=== PATIENT | female | born 1965 | race African-American/Black ===

== ENCOUNTER 2018-07-08 08:35 | Inpatient (IN) | payer OTHER ==
[2018-07-08 09:45] VITALS: BMI 32.1
--- NOTE | 2018-07-08 10:47 | HP ---
CIWA Score - CIWA Score Nausea/Vomitin Muscle Tremors: 3 Anxiety: 3 Agitation: 3 Paroxysmal Sweats: 1-Minimal Palms Moist Orientation: 0-Oriented Tacttile Disturbances: 1-Very Mild Itch/Numbness Auditory Disturbances: 1-Very Mild Visual Disturbances: 1-Very Mild Sensitivity Headache: 2-Mild CIWA-Ar Total Score: 17 Admission ROS BHS - HPI Chief Complaint: i need help to stop drinking alcohol,cocaine and marijuana Allergies/Adverse Reactions: Allergies Allergy/AdvReac Type Severity Reaction Status Date / Time egg Allergy Intermediate Hives Verified 07/08/18 09:52 No Known Drug Allergies Allergy Verified 07/08/18 09:52 History of Present Illness: this 52 years old female with alcohol,cocaine and marijuana dependence,seeking detox,withdrawal symptom,last detox 2013 syncope alcohol related hypertension non compliance nicotine dependence longest period of sobriety 5 years Exam Limitations: No Limitations - Ebola screening Have you traveled outside of the country in the last 21 days: No (N) Have you had contact with anyone from an Ebola affected area: No Have you been sick,other than usual withdrawal symptoms: No Do you have a fever: No - Review of Systems Constitutional: Loss of Appetite, Malaise, Night Sweats, Changes in sleep, Weakness EENT: reports: Nose Congestion Respiratory: reports: No Symptoms reported Cardiac: reports: No Symptoms Reported GI: reports: Diarrhea, Nausea, Poor Appetite : reports: No Symptoms Reported Musculoskeletal: reports: Back Pain, Muscle Pain Neuro: reports: Headache, Tremors Endocrine: reports: No Symptoms Reported Hematology: reports: No Symptoms Reported Psychiatric: reports: Judgement Intact, Mood/Affect Appropiate, Orientated x3 Patient History - Patient Medical History Hx Anemia: No Hx Asthma: No Hx Chronic Obstructive Pulmonary Disease (COPD): No Hx Cancer: No Hx Cardiac Disorders: No Hx Congestive Heart Failure: No Hx Hypertension: Yes (on meds. non compliance) Hx Hypercholesterolemia: No Hx Pacemaker: No HX Cerebrovascular Accident: No Hx Seizures: No Hx Dementia: No Hx Diabetes: No Hx Gastrointestinal Disorders: No Hx Liver Disease: No Hx Genitourinary Disorders: No Hx Sexually Transmitted Disorders: No Hx Renal Disease (ESRD): No Hx Thyroid Disease: No Hx Human Immunodeficiency Virus (HIV): No (12/16 last tested) Hx Hepatitis C: No Hx Depression: No Hx Suicide Attempt: No Hx Bipolar Disorder: No Hx Schizophrenia: No Other Medical History: no suicidal,no homicidal - Patient Surgical History Past Surgical History: Yes Hx Abdominal Surgery: Yes (February 2003 partial hysterectomy) Hx Cholecystectomy: Yes (in 1996 lap) Hx Hysterectomy: Yes (partial for fibroid) Other Surgical History: Misael james sx in 03/17 Anesthesia Reaction: No - PPD History Previous Implant?: No Documented Results: Positive w/o proof Date: 08/03/96 Results: TREATED PPD to be Administered?: No - Reproductive History Last Menstrual Period: 02/14/03 Patient : No - Smoking Cessation Smoking history: Current every day smoker Have you smoked in the past 12 months: Yes Aproximately how many cigarettes per day: 5 Cigars Per Day: 0 Hx Chewing Tobacco Use: No Initiated information on smoking cessation: Yes 'Breaking Loose' booklet given: 07/08/18 - Substance & Tx. History Hx Alcohol Use: Yes Hx Substance Use: Yes Substance Use Type: Alcohol, Cocaine, Marijuana Hx Substance Use Treatment: Yes ([facility] 2013) - Substances Abused Alcohol Route: Oral Frequency: Daily Amount used: 12 16OZ CANS OF BEER, 3-4 AIRLINE BOTTLES OF BACARDI Age of first use: 12 Date of Last Use: 07/08/18 Marijuana/Hashish Route: Smoking Frequency: 3-6 times per week Amount used: 5 - $10 DOLLAR BAGS PER DAY Age of first use: 12 Date of Last Use: 07/07/18 Crack Route: Smoking Frequency: 3-6 times per week Amount used: 13-15 BAGS PER DAY Age of first use: 12 Date of Last Use: 07/07/18 Family Disease History - Family Disease History Family Disease History: Other: Mother (chr. alcoholism ) Admission Physical Exam BHS - Vital Signs Vital Signs: Vital Signs - 24 hr 07/08/18 09:38 Temperature 98.6 F Pulse Rate 101 H Respiratory 20 Rate Blood Pressure 204/98 H - Physical General Appearance: Yes: Moderate Distress, Obese, Tremorous, Irritable, Sweating, Anxious HEENTM: Yes: Normal ENT Inspection, Normocephalic, THOMAS, Pharynx Normal Respiratory: Yes: Within Normal Limits, Lungs Clear, Normal Breath Sounds Neck: Yes: No masses,lesions,Nodules, Supple, Trachea in good position Breast: Yes: Breast Exam Deferred Cardiology: Yes: Tachycardia Abdominal: Yes: Within Normal Limits, Normal Bowel Sounds, Non Tender, Soft Genitourinary: Yes: Within Normal Limits Back: Yes: Muscle Spasm, Other (sciatica) Extremities: Yes: Tremors Neurological: Yes: Within Normal Limits, sales enablement manager II-XII NML intact, Fully Oriented, Alert, Motor Strength 5/5 Integumentary: Yes: Dry Lymphatic: Yes: Within Normal Limits - Diagnostic (1) Alcohol dependence with uncomplicated withdrawal Current Visit: Yes Status: Acute (2) Cocaine dependence Current Visit: No Status: Acute (3) Cannabis dependence Current Visit: Yes Status: Acute (4) Essential hypertension Current Visit: Yes Status: Acute (5) Left sided sciatica Current Visit: No Status: Acute (6) S/P laparoscopic cholecystectomy Current Visit: No Status: Acute (7) S/P partial hysterectomy Current Visit: No Status: Acute (8) Syncope Current Visit: No Status: Acute (9) Obese Current Visit: Yes Status: Acute (10) Positive PPD Current Visit: Yes Status: Acute (11) Hypercholesterolemia Current Visit: Yes Status: Acute Cleared for Admission [facility] - Detox or Rehab [facility] Level of Care: Medically Managed Detox Regimen/Protocol: Librium [facility] Breath Alcohol Content Breath Alcohol Content: 0 Urine Pregancy Test - Result Urine Test Results: Negative- NO Line Present Urine Drug Screen - Results Drug Screen Negative: No Urine Drug Screen Results: THC-Marijuana, REID-Cocaine
[2018-07-08] MEDS ORDERED: MAG HYDROX/AL HYDROX/SIMETH 30 ML UNIT-DOSE CUP PO PRN (11:02)
[2018-07-08] MEDS ORDERED: MAGNESIUM HYDROX 2400MG/30ML ORAL SUSPENSION 30 ML CUP PO PRN (11:02)
[2018-07-08] MEDS ORDERED: P-EPHED 60MG/TRIPROLIDI 2.5MG TABLET PO PRN (11:02)
[2018-07-08] MEDS ORDERED: guaiFENesin/D-METHORPHAN HB 10 ML UNIT-DOSE CUPS PO PRN (11:02)
[2018-07-08] MEDS ORDERED: LOPERAMIDE HCL 2 MG CAPSULE PO PRN (11:02)
[2018-07-08] MEDS ORDERED: hydrOXYzine PAMOATE 50 MG CAPSULE (FP) PO PRN (11:02)
[2018-07-08] MEDS ORDERED: MAGNESIUM CITRATE 300 ML BOTTLE PO PRN (11:02)
[2018-07-08] MEDS ORDERED: IBUPROFEN 400 MG TABLET (FP) PO PRN (11:02)
[2018-07-08] MEDS ORDERED: MENTHOL/PHENOL 1 EACH UD MM PRN (11:02)
[2018-07-08] MEDS: LISINOPRIL 20 MG TABLET (FP) PO SCH (12:01)
[2018-07-08] MEDS: chlordiazePOXIDE HCL 25 MG CAPSULE PO PRN (12:02)
[2018-07-08] MEDS: ACETAMINOPHEN 325 MG TABLET (FP) PO PRN (12:35)
[2018-07-08] MEDS ORDERED: NAPROXEN 500 MG TABLET (FP) PO ONE (14:00)
[2018-07-08] MEDS: chlordiazePOXIDE HCL 25 MG CAPSULE PO SCH ×2 (17:15→22:17)
[2018-07-08 17:21] LABS: URINE APPEARANCE CLEAR; URINE BILIRUBIN NEGATIVE (<2.0 mg/dL); URINE COLOR LTYELLOW; URINE GLUCOSE (UA) NEGATIVE (NEGATIVE); URINE KETONE NEGATIVE (NEGATIVE); URINE LEUK ESTERASE NEGATIVE (NEGATIVE); URINE NITRITE NEGATIVE (NEGATIVE); URINE PROTEIN NEGATIVE (NEGATIVE); URINE UROBILINOGEN NEGATIVE mg/dL (0.2-1.0)
[2018-07-08] MEDS ORDERED: MELATONIN 5 MG TABLETS PO PRN (22:00)
[2018-07-08] MEDS: THIAMINE HCL 100 MG TABLET (FP) PO SCH (22:17)
[2018-07-08] MEDS: NAPROXEN 500 MG TABLET (FP) PO SCH (22:17)
[2018-07-08] MEDS: ATORVASTATIN CA 10 MG TABLET (FP) PO SCH (22:17)
--- NOTE | 2018-07-08 22:17 | EKG ---
Test Reason : Blood Pressure : / mmHG Vent. Rate : 095 BPM Atrial Rate : 095 BPM P-R Int : 140 ms QRS Dur : 090 ms QT Int : 368 ms P-R-T Axes : 061 017 083 degrees QTc Int : 462 ms NORMAL SINUS RHYTHM POSSIBLE LEFT ATRIAL ENLARGEMENT LEFT VENTRICULAR HYPERTROPHY CANNOT RULE OUT SEPTAL INFARCT , AGE UNDETERMINED ABNORMAL ECG NO PREVIOUS ECGS AVAILABLE Confirmed by JEFFERSON HUI MD ([id number]) on 07/08/2018 10:17:18 PM Referred By: Confirmed By:JEFFERSON HUI MD
[2018-07-09] MEDS: chlordiazePOXIDE HCL 25 MG CAPSULE PO SCH ×4 (05:30→23:22)
[2018-07-09] MEDS: ASPIRIN COATED 81 MG TABLET.EC PO SCH (10:44)
[2018-07-09] MEDS: NAPROXEN 500 MG TABLET (FP) PO SCH ×2 (10:44→22:56)
[2018-07-09] MEDS: LISINOPRIL 20 MG TABLET (FP) PO SCH (10:44)
[2018-07-09] MEDS: PRENATAL VITAMINS W/ FOLIC ACID TABLET (FP) PO SCH (10:45)
[2018-07-09] MEDS: chlordiazePOXIDE HCL 25 MG CAPSULE PO PRN (10:45)
[2018-07-09 11:01] LABS: HEMATOCRIT 44.8 % (32.4-45.2); HEMOGLOBIN 14.8 GM/dL (10.7-15.3); MEAN CELL VOLUME 93.9 fl (80-96); MEAN PLT VOLUME 8.2 fl (7.5-11.1); PLATELET COUNT 273 K/MM3 (134-434); RBC 4.77 M/mm3 (3.60-5.2); RDW 13.4 % (11.6-15.6); WHITE BLOOD COUNT 9.2 K/mm3 (4.0-10.0)
[2018-07-09 11:30] LABS: ALBUMIN 3.7 g/dl (3.4-5.0); ALK PHOS 123 U/L (45-117); ANION GAP 7 MMOL/L (8-16); BILIRUBIN,TOTAL 0.3 mg/dL (0.2-1); BLOOD UREA NITROGEN 17 mg/dL (7-18); CALCIUM 9.1 mg/dL (8.5-10.1); CHLORIDE 109 mmol/L (98-107); CHOLESTEROL 179 mg/dL (50-200); CO2 26 mmol/L (21-32); CREATININE 0.7 mg/dL (0.55-1.3); GLUCOSE,RANDOM 78 mg/dL (74-106); HDL CHOLESTEROL 59 mg/dL (40-60); POTASSIUM 4.4 mmol/L (3.5-5.1); SGOT/AST 23 U/L (15-37); SGPT/ALT 37 U/L (13-61); SODIUM 142 mmol/L (136-145); TOT PROT 7.2 g/dl (6.4-8.2); TRIGLYCERIDES 136 mg/dL (0-150)
--- NOTE | 2018-07-09 13:59 | PN ---
S CIWA - CIWA Score Nausea/Vomitin-No Nausea/No Vomiting Muscle Tremors: None Anxiety: 3 Agitation: 3 Paroxysmal Sweats: 2 Orientation: 0-Oriented Tacttile Disturbances: 0-None Auditory Disturbances: 0-None Visual Disturbances: 0-None Headache: 0-None Present CIWA-Ar Total Score: 8 BHS Progress Note (SOAP) Subjective: PATIENT PACING IN HALLWAY CONSOLING ANOTHER PATIENT. ANXIOUS/IRRITABLE AT TIMES. Objective: 07/09/18 13:57 Vital Signs Temperature 96.6 F L 07/09/18 09:31 Pulse Rate 74 07/09/18 09:31 Respiratory Rate 18 07/09/18 09:31 Blood Pressure 136/68 07/09/18 09:31 O2 Sat by Pulse Oximetry (%) Laboratory Tests 07/08/18 07/09/18 07/09/18 14:30 06:00 06:00 WBC 9.2 RBC 4.77 Hgb 14.8 Hct 44.8 MCV 93.9 MCH 31.0 MCHC 33.0 RDW 13.4 Plt Count 273 MPV 8.2 Sodium 142 Potassium 4.4 Chloride 109 H Carbon Dioxide 26 Anion Gap 7 L BUN 17 Creatinine 0.7 Creat Clearance w eGFR > 60 Random Glucose 78 Calcium 9.1 Total Bilirubin 0.3 AST 23 ALT 37 Alkaline Phosphatase 123 H Total Protein 7.2 Albumin 3.7 Triglycerides 136 Cholesterol 179 Total LDL Cholesterol 97 HDL Cholesterol 59 Urine Color Ltyellow Urine Appearance Clear Urine pH 5.0 Ur Specific [place] 1.018 Urine Protein Negative Urine Glucose (UA) Negative Urine Ketones Negative Urine Blood Negative Urine Nitrite Negative Urine Bilirubin Negative Urine Urobilinogen Negative Ur Leukocyte Esterase Negative RPR Titer 07/09/18 06:00 WBC RBC Hgb Hct MCV MCH MCHC RDW Plt Count MPV Sodium Potassium Chloride Carbon Dioxide Anion Gap BUN Creatinine Creat Clearance w eGFR Random Glucose Calcium Total Bilirubin AST ALT Alkaline Phosphatase Total Protein Albumin Triglycerides Cholesterol Total LDL Cholesterol HDL Cholesterol Urine Color Urine Appearance Urine pH Ur Specific [place] Urine Protein Urine Glucose (UA) Urine Ketones Urine Blood Urine Nitrite Urine Bilirubin Urine Urobilinogen Ur Leukocyte Esterase RPR Titer Nonreactive ALERT AND ORIENTED SKIN MOIST IN NAD EXT FULL ROM, AMB AD MICHAEL Assessment: 07/09/18 13:58 WITHDRAWAL SYNDROME Plan: DETOX CONTINUED ENCOURAGE ORAL FLUIDS CONTINUE TO MONITOR
[2018-07-09] MEDS: ACETAMINOPHEN 325 MG TABLET (FP) PO PRN (20:36)
[2018-07-09] MEDS: ATORVASTATIN CA 10 MG TABLET (FP) PO SCH (22:57)
[2018-07-09] MEDS: THIAMINE HCL 100 MG TABLET (FP) PO SCH (23:23)
[2018-07-10] MEDS ORDERED: NAPROXEN 500 MG TABLET (FP) PO ONE (01:31)
[2018-07-10] MEDS: chlordiazePOXIDE HCL 25 MG CAPSULE PO SCH ×2 (06:33→10:36)
[2018-07-10] MEDS ORDERED: cloNIDine HCL 0.1 MG TABLET PO SCH (10:00)
[2018-07-10] MEDS: LISINOPRIL 20 MG TABLET (FP) PO SCH (10:36)
[2018-07-10] MEDS: ASPIRIN COATED 81 MG TABLET.EC PO SCH (10:36)
[2018-07-10] MEDS: NAPROXEN 500 MG TABLET (FP) PO SCH ×2 (10:36→23:19)
[2018-07-10] MEDS: PRENATAL VITAMINS W/ FOLIC ACID TABLET (FP) PO SCH (10:36)
[2018-07-10] MEDS: cloNIDine HCL 0.1 MG TABLET PO SCH ×2 (11:44→23:19)
--- NOTE | 2018-07-10 13:58 | PN ---
S CIWA - CIWA Score Nausea/Vomitin-No Nausea/No Vomiting Muscle Tremors: None Anxiety: 4-Mod. Anxious/Guarded Agitation: 3 Paroxysmal Sweats: No Perspiration Orientation: 0-Oriented Tacttile Disturbances: 0-None Auditory Disturbances: 0-None Visual Disturbances: 0-None Headache: 2-Mild CIWA-Ar Total Score: 9 BHS Progress Note (SOAP) Subjective: PATIENT IRRITABLE AND C/O HEADACHE. Objective: 07/10/18 13:56 Vital Signs Temperature 97.3 F L 07/10/18 10:43 Pulse Rate 85 07/10/18 10:43 Respiratory Rate 18 07/10/18 10:43 Blood Pressure 152/85 07/10/18 10:43 O2 Sat by Pulse Oximetry (%) Laboratory Tests 07/08/18 07/09/18 07/09/18 14:30 06:00 06:00 WBC 9.2 RBC 4.77 Hgb 14.8 Hct 44.8 MCV 93.9 MCH 31.0 MCHC 33.0 RDW 13.4 Plt Count 273 MPV 8.2 Sodium 142 Potassium 4.4 Chloride 109 H Carbon Dioxide 26 Anion Gap 7 L BUN 17 Creatinine 0.7 Creat Clearance w eGFR > 60 Random Glucose 78 Calcium 9.1 Total Bilirubin 0.3 AST 23 ALT 37 Alkaline Phosphatase 123 H Total Protein 7.2 Albumin 3.7 Triglycerides 136 Cholesterol 179 Total LDL Cholesterol 97 HDL Cholesterol 59 Urine Color Ltyellow Urine Appearance Clear Urine pH 5.0 Ur Specific [place] 1.018 Urine Protein Negative Urine Glucose (UA) Negative Urine Ketones Negative Urine Blood Negative Urine Nitrite Negative Urine Bilirubin Negative Urine Urobilinogen Negative Ur Leukocyte Esterase Negative RPR Titer 07/09/18 06:00 WBC RBC Hgb Hct MCV MCH MCHC RDW Plt Count MPV Sodium Potassium Chloride Carbon Dioxide Anion Gap BUN Creatinine Creat Clearance w eGFR Random Glucose Calcium Total Bilirubin AST ALT Alkaline Phosphatase Total Protein Albumin Triglycerides Cholesterol Total LDL Cholesterol HDL Cholesterol Urine Color Urine Appearance Urine pH Ur Specific [place] Urine Protein Urine Glucose (UA) Urine Ketones Urine Blood Urine Nitrite Urine Bilirubin Urine Urobilinogen Ur Leukocyte Esterase RPR Titer Nonreactive SKIN WARM AND DRY AMB AD MICHAEL IRRITABLE AND ANXIOUS ALERT AND ORIENTED Assessment: 07/10/18 13:57 WITHDRAWAL SYNDROME Plan: CONTINUE DETOX ORAL FLUIDS ENCOURAGED CONTINUE TO MONITOR CLINICALLY
[2018-07-10] MEDS: chlordiazePOXIDE 5 MG CAPSULE PO SCH ×2 (17:37→23:20)
[2018-07-10] MEDS: ACETAMINOPHEN 325 MG TABLET (FP) PO PRN (20:02)
[2018-07-10] MEDS: ATORVASTATIN CA 10 MG TABLET (FP) PO SCH (23:19)
[2018-07-10] MEDS: THIAMINE HCL 100 MG TABLET (FP) PO SCH (23:20)
[2018-07-11] MEDS: ACETAMINOPHEN 325 MG TABLET (FP) PO PRN ×2 (05:29→19:06)
[2018-07-11] MEDS: chlordiazePOXIDE 5 MG CAPSULE PO SCH ×2 (05:29→10:50)
[2018-07-11] MEDS: LISINOPRIL 20 MG TABLET (FP) PO SCH (09:50)
[2018-07-11] MEDS: ASPIRIN COATED 81 MG TABLET.EC PO SCH (09:50)
[2018-07-11] MEDS: PRENATAL VITAMINS W/ FOLIC ACID TABLET (FP) PO SCH (09:51)
[2018-07-11] MEDS: NAPROXEN 500 MG TABLET (FP) PO SCH ×2 (09:51→22:07)
[2018-07-11] MEDS: cloNIDine HCL 0.1 MG TABLET PO SCH ×2 (09:51→22:07)
--- NOTE | 2018-07-11 16:05 | PN ---
BHS Progress Note (SOAP) Subjective: feeling better no tremor less sweat social with peers sleep better at night Objective: 07/11/18 16:06 Vital Signs Temperature 98.1 F 07/11/18 16:03 Pulse Rate 81 07/11/18 16:03 Respiratory Rate 18 07/11/18 16:03 Blood Pressure 147/88 07/11/18 16:03 O2 Sat by Pulse Oximetry (%) Laboratory Last Values WBC 9.2 K/mm3 (4.0-10.0) 07/09/18 06:00 RBC 4.77 M/mm3 (3.60-5.2) 07/09/18 06:00 Hgb 14.8 GM/dL (10.7-15.3) 07/09/18 06:00 Hct 44.8 % (32.4-45.2) 07/09/18 06:00 MCV 93.9 fl (80-96) 07/09/18 06:00 MCH 31.0 pg (25.7-33.7) 07/09/18 06:00 MCHC 33.0 g/dl (32.0-36.0) 07/09/18 06:00 RDW 13.4 % (11.6-15.6) 07/09/18 06:00 Plt Count 273 K/MM3 (134-434) 07/09/18 06:00 MPV 8.2 fl (7.5-11.1) 07/09/18 06:00 Sodium 142 mmol/L (136-145) 07/09/18 06:00 Potassium 4.4 mmol/L (3.5-5.1) 07/09/18 06:00 Chloride 109 mmol/L (98-107) H 07/09/18 06:00 Carbon Dioxide 26 mmol/L (21-32) 07/09/18 06:00 Anion Gap 7 MMOL/L (8-16) L 07/09/18 06:00 BUN 17 mg/dL (7-18) 07/09/18 06:00 Creatinine 0.7 mg/dL (0.55-1.3) 07/09/18 06:00 Creat Clearance w eGFR > 60 (>60) 07/09/18 06:00 Random Glucose 78 mg/dL (74-106) 07/09/18 06:00 Calcium 9.1 mg/dL (8.5-10.1) 07/09/18 06:00 Total Bilirubin 0.3 mg/dL (0.2-1) 07/09/18 06:00 AST 23 U/L (15-37) 07/09/18 06:00 ALT 37 U/L (13-61) 07/09/18 06:00 Alkaline Phosphatase 123 U/L (45-117) H 07/09/18 06:00 Total Protein 7.2 g/dl (6.4-8.2) 07/09/18 06:00 Albumin 3.7 g/dl (3.4-5.0) 07/09/18 06:00 Triglycerides 136 mg/dL (0-150) 07/09/18 06:00 Cholesterol 179 mg/dL (50-200) 07/09/18 06:00 Total LDL Cholesterol 97 mg/dL (5-100) 07/09/18 06:00 HDL Cholesterol 59 mg/dL (40-60) 07/09/18 06:00 Urine Color Ltyellow 07/08/18 14:30 Urine Appearance Clear 07/08/18 14:30 Urine pH 5.0 (5.0-8.0) 07/08/18 14:30 Ur Specific [place] 1.018 (1.004-1.035) 07/08/18 14:30 Urine Protein Negative (NEGATIVE) 07/08/18 14:30 Urine Glucose (UA) Negative (NEGATIVE) 07/08/18 14:30 Urine Ketones Negative (NEGATIVE) 07/08/18 14:30 Urine Blood Negative (NEGATIVE) 07/08/18 14:30 Urine Nitrite Negative (NEGATIVE) 07/08/18 14:30 Urine Bilirubin Negative (<2.0 mg/dL) 07/08/18 14:30 Urine Urobilinogen Negative mg/dL (0.2-1.0) 07/08/18 14:30 Ur Leukocyte Esterase Negative (NEGATIVE) 07/08/18 14:30 RPR Titer Nonreactive (NONREACTIVE) 07/09/18 06:00 lab noted Assessment: 07/11/18 16:08 mild withdrawal sx Plan: medically supervised detox
[2018-07-11] MEDS: chlordiazePOXIDE HCL 10 MG CAPSULE PO SCH ×2 (18:23→22:06)
[2018-07-11] MEDS: THIAMINE HCL 100 MG TABLET (FP) PO SCH (22:07)
[2018-07-11] MEDS: ATORVASTATIN CA 10 MG TABLET (FP) PO SCH (22:07)
[2018-07-12] MEDS: chlordiazePOXIDE HCL 10 MG CAPSULE PO SCH (07:22)
[2018-07-12 07:32] VITALS: BP 129/74; PULSE 67; TEMP 97.3
--- NOTE | 2018-07-12 09:24 | DS ---
[facility] Detox Discharge Summary Admission Date: 07/08/18 Discharge Date: 07/12/18 - History Present History: Alcohol Dependence Additional Comments: 52 years old female admitted on 07/08/18 for alcohol wtihdrwal sx completed detox regimen tolerated well denies alohol withdrawal sx alert oriented x 3 no acute distress aftercare [facility] - Physical Exam Results Vital Signs: Vital Signs Temperature 97.3 F L 07/12/18 07:32 Pulse Rate 67 07/12/18 07:32 Respiratory Rate 18 07/12/18 07:32 Blood Pressure 129/74 07/12/18 07:32 O2 Sat by Pulse Oximetry (%) Pertinent Admission Physical Exam Findings: alcohol withdrawal sx Vital Signs Temperature 97.3 F L 07/12/18 07:32 Pulse Rate 67 07/12/18 07:32 Respiratory Rate 18 07/12/18 07:32 Blood Pressure 129/74 07/12/18 07:32 O2 Sat by Pulse Oximetry (%) Laboratory Last Values WBC 9.2 K/mm3 (4.0-10.0) 07/09/18 06:00 RBC 4.77 M/mm3 (3.60-5.2) 07/09/18 06:00 Hgb 14.8 GM/dL (10.7-15.3) 07/09/18 06:00 Hct 44.8 % (32.4-45.2) 07/09/18 06:00 MCV 93.9 fl (80-96) 07/09/18 06:00 MCH 31.0 pg (25.7-33.7) 07/09/18 06:00 MCHC 33.0 g/dl (32.0-36.0) 07/09/18 06:00 RDW 13.4 % (11.6-15.6) 07/09/18 06:00 Plt Count 273 K/MM3 (134-434) 07/09/18 06:00 MPV 8.2 fl (7.5-11.1) 07/09/18 06:00 Sodium 142 mmol/L (136-145) 07/09/18 06:00 Potassium 4.4 mmol/L (3.5-5.1) 07/09/18 06:00 Chloride 109 mmol/L (98-107) H 07/09/18 06:00 Carbon Dioxide 26 mmol/L (21-32) 07/09/18 06:00 Anion Gap 7 MMOL/L (8-16) L 07/09/18 06:00 BUN 17 mg/dL (7-18) 07/09/18 06:00 Creatinine 0.7 mg/dL (0.55-1.3) 07/09/18 06:00 Creat Clearance w eGFR > 60 (>60) 07/09/18 06:00 Random Glucose 78 mg/dL (74-106) 07/09/18 06:00 Calcium 9.1 mg/dL (8.5-10.1) 07/09/18 06:00 Total Bilirubin 0.3 mg/dL (0.2-1) 07/09/18 06:00 AST 23 U/L (15-37) 07/09/18 06:00 ALT 37 U/L (13-61) 07/09/18 06:00 Alkaline Phosphatase 123 U/L (45-117) H 07/09/18 06:00 Total Protein 7.2 g/dl (6.4-8.2) 07/09/18 06:00 Albumin 3.7 g/dl (3.4-5.0) 07/09/18 06:00 Triglycerides 136 mg/dL (0-150) 07/09/18 06:00 Cholesterol 179 mg/dL (50-200) 07/09/18 06:00 Total LDL Cholesterol 97 mg/dL (5-100) 07/09/18 06:00 HDL Cholesterol 59 mg/dL (40-60) 07/09/18 06:00 Urine Color Ltyellow 07/08/18 14:30 Urine Appearance Clear 07/08/18 14:30 Urine pH 5.0 (5.0-8.0) 07/08/18 14:30 Ur Specific [place] 1.018 (1.004-1.035) 07/08/18 14:30 Urine Protein Negative (NEGATIVE) 07/08/18 14:30 Urine Glucose (UA) Negative (NEGATIVE) 07/08/18 14:30 Urine Ketones Negative (NEGATIVE) 07/08/18 14:30 Urine Blood Negative (NEGATIVE) 07/08/18 14:30 Urine Nitrite Negative (NEGATIVE) 07/08/18 14:30 Urine Bilirubin Negative (<2.0 mg/dL) 07/08/18 14:30 Urine Urobilinogen Negative mg/dL (0.2-1.0) 07/08/18 14:30 Ur Leukocyte Esterase Negative (NEGATIVE) 07/08/18 14:30 RPR Titer Nonreactive (NONREACTIVE) 07/09/18 06:00 lab noted - Treatment Hospital Course: Detox Protocol Followed, Detoxed Safely, Responded well, Discharged Condition Good, Rehab Referral Accepted Patient has Accepted a Rehab Referral to: [facility] - Medication Discharge Medications: Ambulatory Orders Naproxen [Naprosyn -] 500 mg PO BID 02/08/14 Aspirin [Aspirin EC] 81 mg PO DAILY 07/08/18 Lisinopril 20 mg PO DAILY #30 tablet 07/11/18 Simvastatin 20 mg PO HS #30 tablet 07/11/18 - Diagnosis (1) Alcohol dependence with uncomplicated withdrawal Status: Acute (2) Essential hypertension Status: Chronic (3) Hypercholesterolemia Status: Chronic (4) Positive PPD Status: Resolved - AMA Did Patient Leave Against Medical Advice: No
== END 2018-07-12 08:05 | disposition home or self-care (01) | DRG 774 ==
LOC: YASAS 08:35 → Y6N 10:53
PROC: HZ2ZZZZ Detoxification Services for Substance Abuse Treatment (ICD-10-PCS; principal; 2018-07-08)
DX: F10.230 Alcohol dependence with withdrawal, uncomplicated (principal); F14.20 Cocaine dependence, uncomplicated; F12.20 Cannabis dependence, uncomplicated; I10 Essential (primary) hypertension; E78.00 Pure hypercholesterolemia, unspecified; M54.32 Sciatica, left side; R55 Syncope and collapse; E66.9 Obesity, unspecified; Z68.32 Body mass index [BMI] 32.0-32.9, adult; Z90.49 Acquired absence of other specified parts of digestive tract; Z90.711 Acquired absence of uterus with remaining cervical stump
CPT/HCPCS: 36415; 71046-TC-FY; 80053; 80061; 81003; 83721; 85027; 86593; 93005; 93010; J0735

== ENCOUNTER 2022-04-08 10:17 | Inpatient (IN) | payer OTHER ==
[2022-04-08 11:13] VITALS: BMI 30.7
[2022-04-08] MEDS ORDERED: MAGNESIUM CITRATE 300 ML BOTTLE PO PRN (11:26)
[2022-04-08] MEDS ORDERED: DICYCLOMINE HCL 10 MG CAPSULE PO PRN (11:26)
[2022-04-08] MEDS ORDERED: BENZOCAINE/MENTHOL (CHLORASEPTIC ) LOZENGE MM PRN (11:26)
[2022-04-08] MEDS ORDERED: IBUPROFEN 400 MG TABLET (FP) PO PRN (11:26)
[2022-04-08] MEDS ORDERED: MAG HYDROX/AL HYDROX/SIMETH 30 ML UNIT-DOSE CUP PO PRN (11:26)
[2022-04-08] MEDS ORDERED: chlordiazePOXIDE HCL 25 MG CAPSULE PO PRN (11:26)
[2022-04-08] MEDS ORDERED: LOPERAMIDE HCL 2 MG CAPSULE PO PRN (11:26)
[2022-04-08] MEDS ORDERED: ACETAMINOPHEN 325 MG TABLET (FP) PO PRN ×2 (11:26)
[2022-04-08] MEDS ORDERED: MAGNESIUM HYDROX 2400MG/30ML ORAL SUSPENSION 30 ML CUP PO PRN (11:26)
[2022-04-08] MEDS ORDERED: METHOCARBAMOL 500 MG TABLET PO PRN (11:26)
[2022-04-08] MEDS ORDERED: IBUPROFEN 600 MG TABLET (FP) PO PRN (11:26)
[2022-04-08] MEDS ORDERED: ONDANSETRON *ODT* 4 MG TABLET SL PRN (11:26)
[2022-04-08] MEDS ORDERED: BISMUTH SUBSALICYLATE 262 MG/15 ML BTL PO PRN (11:26)
[2022-04-08] MEDS: chlordiazePOXIDE HCL 25 MG CAPSULE PO SCH ×3 (12:23→22:22)
[2022-04-08] MEDS: PRENATAL VITAMINS W/ FOLIC ACID TABLET (FP) PO SCH (12:25)
[2022-04-08] MEDS: hydrOXYzine PAMOATE 25 MG CAPSULE (FP) PO SCH ×3 (14:33→22:23)
[2022-04-08] MEDS: IBUPROFEN 400 MG TABLET (FP) PO PRN (17:52)
[2022-04-08] MEDS: NICOTINE 10 MG CARTRIDGE (INHALER) IH PRN (17:56)
[2022-04-08] MEDS: MELATONIN 5 MG TABLETS PO SCH (22:22)
[2022-04-08] MEDS: THIAMINE HCL 100 MG TABLET (FP) PO SCH (22:22)
[2022-04-08] MEDS: ATORVASTATIN CA 10 MG TABLET (FP) PO SCH (22:22)
[2022-04-09] MEDS: IBUPROFEN 400 MG TABLET (FP) PO PRN ×3 (06:08→22:14)
[2022-04-09] MEDS: chlordiazePOXIDE HCL 25 MG CAPSULE PO SCH (06:09)
[2022-04-09] MEDS: hydrOXYzine PAMOATE 25 MG CAPSULE (FP) PO SCH (06:11)
[2022-04-09] MEDS: NICOTINE 10 MG CARTRIDGE (INHALER) IH PRN ×2 (06:24→20:17)
[2022-04-09 08:35] LABS: ALBUMIN 3.6 g/dl (3.4-5.0); BLOOD UREA NITROGEN 26.5 mg/dL (7-18)
[2022-04-09 08:38] LABS: CREATININE 0.5 mg/dL (0.55-1.3)
[2022-04-09 08:40] LABS: BILIRUBIN,TOTAL 0.4 mg/dL (0.2-1); TOT PROT 6.7 g/dl (6.4-8.2)
[2022-04-09 08:42] LABS: HEMATOCRIT 41.3 % (32.4-45.2); HEMOGLOBIN 14.1 GM/dL (10.7-15.3); MCH 32.3 pg (25.7-33.7); MCHC 34.2 g/dl (32.0-36.0); MEAN CELL VOLUME 94.4 fl (80-96); MEAN PLT VOLUME 7.6 fl (7.5-11.1); PLATELET COUNT 243 10^3/uL (134-434); RBC 4.37 M/mm3 (3.60-5.2); RDW 14.2 % (11.6-15.6); WHITE BLOOD COUNT 7.6 K/mm3 (4.0-10.0)
[2022-04-09] MEDS ORDERED: LORazepam 1 MG TABLET PO PRN (09:59)
[2022-04-09] MEDS ORDERED: LISINOPRIL 20 MG TABLET PO SCH (10:00)
[2022-04-09] MEDS: PRENATAL VITAMINS W/ FOLIC ACID TABLET (FP) PO SCH (10:06)
[2022-04-09] MEDS: PANTOPRAZOLE 20 MG TABLET PO SCH (10:29)
[2022-04-09] MEDS: amLODIPine BESYLATE 10 MG TABLET (FP) PO SCH (10:29)
[2022-04-09] MEDS: ASPIRIN COATED 81 MG TABLET.EC PO SCH (10:30)
[2022-04-09] MEDS: LORazepam 2 MG TABLET PO SCH ×3 (10:31→22:12)
[2022-04-09] MEDS: valACYclovir HCL 500 MG TABLET (FP) PO SCH (10:33)
[2022-04-09] MEDS: LOSARTAN POTASSIUM 50 MG TABLET PO SCH (17:32)
[2022-04-09] MEDS: THIAMINE HCL 100 MG TABLET (FP) PO SCH (22:12)
[2022-04-09] MEDS: ATORVASTATIN CA 10 MG TABLET (FP) PO SCH (22:12)
[2022-04-09] MEDS: MELATONIN 5 MG TABLETS PO SCH (22:12)
[2022-04-10] MEDS ORDERED: chlordiazePOXIDE HCL 25 MG CAPSULE PO SCH (05:00)
[2022-04-10] MEDS: LORazepam 2 MG TABLET PO SCH ×2 (05:36→10:29)
[2022-04-10] MEDS: NICOTINE 10 MG CARTRIDGE (INHALER) IH PRN (06:17)
[2022-04-10] MEDS: IBUPROFEN 400 MG TABLET (FP) PO PRN ×3 (09:17→22:30)
[2022-04-10] MEDS: LOSARTAN POTASSIUM 50 MG TABLET PO SCH (10:27)
[2022-04-10] MEDS: valACYclovir HCL 500 MG TABLET (FP) PO SCH (10:28)
[2022-04-10] MEDS: amLODIPine BESYLATE 10 MG TABLET (FP) PO SCH (10:28)
[2022-04-10] MEDS: ASPIRIN COATED 81 MG TABLET.EC PO SCH (10:28)
[2022-04-10] MEDS: PRENATAL VITAMINS W/ FOLIC ACID TABLET (FP) PO SCH (10:29)
[2022-04-10] MEDS: PANTOPRAZOLE 20 MG TABLET PO SCH (10:29)
[2022-04-10] MEDS ORDERED: INSULIN (NOVOLOG) ASPART 100 UNITS/ML 10ML VIAL ONE (17:19)
[2022-04-10] MEDS: metFORMIN HCL 500 MG TABLET (FP) PO SCH (17:49)
[2022-04-10] MEDS: INSULIN SLIDING SCALE (NOVOLOG) 1 VIAL SQ SCH (17:58)
[2022-04-10] MEDS: diazePAM 5 MG TABLET PO SCH ×2 (17:58→23:21)
[2022-04-10] MEDS ORDERED: diazePAM 5 MG TABLET PO SCH (22:00)
[2022-04-10] MEDS: THIAMINE HCL 100 MG TABLET (FP) PO SCH (22:27)
[2022-04-10] MEDS: ATORVASTATIN CA 10 MG TABLET (FP) PO SCH (22:27)
[2022-04-10] MEDS: MELATONIN 5 MG TABLETS PO SCH (22:27)
[2022-04-11] MEDS ORDERED: chlordiazePOXIDE HCL 10 MG CAPSULE PO PRN
[2022-04-11] MEDS ORDERED: LORazepam 1 MG TABLET PO SCH (05:00)
[2022-04-11] MEDS ORDERED: chlordiazePOXIDE HCL 10 MG CAPSULE PO SCH (05:00)
[2022-04-11] MEDS: IBUPROFEN 400 MG TABLET (FP) PO PRN ×3 (05:59→21:30)
[2022-04-11] MEDS: metFORMIN HCL 500 MG TABLET (FP) PO SCH ×2 (05:59→17:55)
[2022-04-11] MEDS: diazePAM 5 MG TABLET PO SCH ×3 (06:01→22:29)
[2022-04-11] MEDS: INSULIN SLIDING SCALE (NOVOLOG) 1 VIAL SQ SCH ×2 (07:10→18:34)
[2022-04-11] MEDS: NICOTINE 10 MG CARTRIDGE (INHALER) IH PRN (08:57)
[2022-04-11] MEDS: PRENATAL VITAMINS W/ FOLIC ACID TABLET (FP) PO SCH (10:35)
[2022-04-11] MEDS: ASPIRIN COATED 81 MG TABLET.EC PO SCH (10:35)
[2022-04-11] MEDS: LOSARTAN POTASSIUM 50 MG TABLET PO SCH (10:35)
[2022-04-11] MEDS: amLODIPine BESYLATE 10 MG TABLET (FP) PO SCH (10:35)
[2022-04-11] MEDS: PANTOPRAZOLE 20 MG TABLET PO SCH (10:35)
[2022-04-11] MEDS: valACYclovir HCL 500 MG TABLET (FP) PO SCH (10:35)
[2022-04-11] MEDS: THIAMINE HCL 100 MG TABLET (FP) PO SCH (22:28)
[2022-04-11] MEDS: MELATONIN 5 MG TABLETS PO SCH (22:28)
[2022-04-11] MEDS: ATORVASTATIN CA 10 MG TABLET (FP) PO SCH (22:28)
[2022-04-12] MEDS ORDERED: LORazepam 0.5 MG TABLET PO PRN
[2022-04-12] MEDS ORDERED: LORazepam 0.5 MG TABLET PO SCH (05:00)
[2022-04-12] MEDS ORDERED: chlordiazePOXIDE HCL 10 MG CAPSULE PO SCH (05:00)
[2022-04-12] MEDS: metFORMIN HCL 500 MG TABLET (FP) PO SCH ×2 (06:23→17:20)
[2022-04-12] MEDS: INSULIN SLIDING SCALE (NOVOLOG) 1 VIAL SQ SCH ×2 (06:24→17:20)
[2022-04-12] MEDS: NICOTINE 10 MG CARTRIDGE (INHALER) IH PRN ×3 (06:38→22:02)
[2022-04-12] MEDS: IBUPROFEN 400 MG TABLET (FP) PO PRN ×3 (07:43→22:00)
[2022-04-12] MEDS: PRENATAL VITAMINS W/ FOLIC ACID TABLET (FP) PO SCH (11:23)
[2022-04-12] MEDS: amLODIPine BESYLATE 10 MG TABLET (FP) PO SCH (11:24)
[2022-04-12] MEDS: LOSARTAN POTASSIUM 50 MG TABLET PO SCH (11:24)
[2022-04-12] MEDS: PANTOPRAZOLE 20 MG TABLET PO SCH (11:24)
[2022-04-12] MEDS: valACYclovir HCL 500 MG TABLET (FP) PO SCH (11:24)
[2022-04-12] MEDS: ASPIRIN COATED 81 MG TABLET.EC PO SCH (11:28)
[2022-04-12] MEDS: ATORVASTATIN CA 10 MG TABLET (FP) PO SCH (22:01)
[2022-04-12] MEDS: THIAMINE HCL 100 MG TABLET (FP) PO SCH (22:01)
[2022-04-12] MEDS: MELATONIN 5 MG TABLETS PO SCH (22:01)
[2022-04-13] MEDS ORDERED: LORazepam 0.5 MG TABLET PO ONE (05:00)
[2022-04-13] MEDS ORDERED: chlordiazePOXIDE HCL 10 MG CAPSULE PO ONE (05:00)
[2022-04-13] MEDS ORDERED: diazePAM 5 MG TABLET PO ONE (05:00)
[2022-04-13] MEDS: IBUPROFEN 400 MG TABLET (FP) PO PRN (05:15)
[2022-04-13] MEDS: metFORMIN HCL 500 MG TABLET (FP) PO SCH (07:01)
[2022-04-13] MEDS: INSULIN SLIDING SCALE (NOVOLOG) 1 VIAL SQ SCH (08:15)
[2022-04-13] MEDS: LOSARTAN POTASSIUM 50 MG TABLET PO SCH (09:53)
[2022-04-13] MEDS: PANTOPRAZOLE 20 MG TABLET PO SCH (09:53)
[2022-04-13] MEDS: amLODIPine BESYLATE 10 MG TABLET (FP) PO SCH (09:53)
[2022-04-13] MEDS: PRENATAL VITAMINS W/ FOLIC ACID TABLET (FP) PO SCH (09:53)
[2022-04-13] MEDS: valACYclovir HCL 500 MG TABLET (FP) PO SCH (09:53)
[2022-04-13] MEDS: ASPIRIN COATED 81 MG TABLET.EC PO SCH (09:55)
[2022-04-13 10:06] VITALS: BP 145/89; PULSE 83; TEMP 96.7
== END 2022-04-13 11:00 | disposition home or self-care (01) | DRG 774 ==
LOC: YASAS 10:17 → Y6N 11:47
PROVIDERS: ADMIT Allergy & Immunology; ATTEND Surgery
PROC: HZ2ZZZZ Detoxification Services for Substance Abuse Treatment (ICD-10-PCS; principal; 2022-04-08)
DX: F10.230 Alcohol dependence with withdrawal, uncomplicated (principal); F14.20 Cocaine dependence, uncomplicated; F12.20 Cannabis dependence, uncomplicated; E78.00 Pure hypercholesterolemia, unspecified; I10 Essential (primary) hypertension; E11.9 Type 2 diabetes mellitus without complications; Z79.84 Long term (current) use of oral hypoglycemic drugs; K21.9 Gastro-esophageal reflux disease without esophagitis; M54.32 Sciatica, left side; R76.11 Nonspecific reaction to tuberculin skin test without active tuberculosis; Z20.2 Contact with and (suspected) exposure to infections with a predominantly sexual mode of transmission; E66.9 Obesity, unspecified; Z68.30 Body mass index [BMI] 30.0-30.9, adult; Z28.310 Unvaccinated for COVID-19; Z91.012 Allergy to eggs
CPT/HCPCS: 36415; 71046-TC-FY; 80053; 82962; 84520; 85027; 86593; 86780; 93005; 93010; C9803-CS; U0003; U0005

== ENCOUNTER 2024-01-28 11:33 | Inpatient (IN) | payer OTHER ==
[2024-01-28 12:26] VITALS: BMI 28.5
[2024-01-28] MEDS ORDERED: MAG HYDROX/AL HYDROX/SIMETH 30 ML UNIT-DOSE CUP PO PRN (14:00)
[2024-01-28] MEDS ORDERED: DICYCLOMINE HCL 10 MG CAPSULE PO PRN (14:00)
[2024-01-28] MEDS ORDERED: IBUPROFEN 600 MG TABLET (FP) PO PRN (14:00)
[2024-01-28] MEDS ORDERED: ACETAMINOPHEN 325 MG TABLET (FP) PO PRN (14:00)
[2024-01-28] MEDS ORDERED: LOPERAMIDE HCL 2 MG CAPSULE PO PRN (14:00)
[2024-01-28] MEDS ORDERED: BENZOCAINE/MENTHOL (CHLORASEPTIC ) LOZENGE MM PRN (14:00)
[2024-01-28] MEDS ORDERED: guaiFENesin 600 MG TABLET.ER (FP) PO PRN (14:00)
[2024-01-28] MEDS ORDERED: BISMUTH SUBSALICYLATE 524 MG/30 ML PO PRN (14:00)
[2024-01-28] MEDS ORDERED: NALOXONE HCL (KLOXXADO) 8 MG SPRAY NS PRN (14:00)
[2024-01-28] MEDS ORDERED: NALOXONE HCL 0.4 MG/ML VIAL IM PRN (14:00)
[2024-01-28] MEDS ORDERED: BENZONATATE 200 MG CAPSULE PO PRN (14:00)
[2024-01-28] MEDS ORDERED: POLYETHYLENE GLYCOL (HEALTHYLAX) 3350 17 GM PACKET PO PRN (14:00)
[2024-01-28] MEDS ORDERED: ONDANSETRON *ODT* 4 MG TABLET SL PRN (14:00)
[2024-01-28] MEDS ORDERED: IBUPROFEN 400 MG TABLET (FP) PO PRN (14:00)
[2024-01-28] MEDS: PRENATAL VITAMINS W/ FOLIC ACID TABLET (FP) PO SCH (14:45)
[2024-01-28] MEDS: hydrOXYzine PAMOATE 25 MG CAPSULE (FP) PO PRN (14:45)
[2024-01-28] MEDS ORDERED: hydrOXYzine PAMOATE 25 MG CAPSULE (FP) PO ONE (14:46)
[2024-01-28] MEDS ORDERED: PRENATAL VITAMINS W/ FOLIC ACID TABLET (FP) PO ONE (14:46)
[2024-01-28] MEDS: diazePAM 5 MG TABLET PO SCH ×2 (18:00→18:27)
[2024-01-28] MEDS: ATORVASTATIN CA 40 MG TABLET (FP) PO SCH (22:33)
[2024-01-28] MEDS: THIAMINE 100 MG TABLET PO SCH (22:33)
[2024-01-28] MEDS: MELATONIN 5 MG TABLETS PO SCH (22:33)
[2024-01-29] MEDS: amLODIPine BESYLATE 10 MG TABLET (FP) PO SCH (10:36)
[2024-01-29] MEDS: valACYclovir HCL 500 MG TABLET (FP) PO SCH (10:36)
[2024-01-29] MEDS: LISINOPRIL 10 MG TABLET PO SCH (10:36)
[2024-01-29] MEDS: PANTOPRAZOLE 40 MG TABLET PO SCH (10:36)
[2024-01-29] MEDS: NAPROXEN 500 MG TABLET PO PRN (10:37)
[2024-01-29] MEDS: DOCUSATE SODIUM 100 MG CAPSULE (FP) PO PRN (10:54)
[2024-01-29 11:47] LABS: HEMATOCRIT 41.2 % (32.4-45.2); HEMOGLOBIN 14.1 GM/dL (10.7-15.3); MCH 33.2 pg (25.7-33.7); MCHC 34.3 g/dl (32.0-36.0); MEAN CELL VOLUME 96.9 fl (80-96); PLATELET COUNT 288 10^3/uL (134-434); RBC 4.25 M/mm3 (3.60-5.2); RDW 13.5 % (11.6-15.6); WHITE BLOOD COUNT 7.3 K/mm3 (4.0-10.0)
[2024-01-29 11:49] LABS: POTASSIUM 4.1 mmol/L (3.5-5.1)
[2024-01-29 12:00] LABS: CALCIUM 8.7 mg/dL (8.5-10.1)
[2024-01-29 12:01] LABS: ALBUMIN 3.5 g/dl (3.4-5.0); BLOOD UREA NITROGEN 14.4 mg/dL (7-18)
[2024-01-29 12:04] LABS: CREATININE 0.7 mg/dL (0.55-1.3)
[2024-01-29 12:06] LABS: BILIRUBIN,TOTAL 0.5 mg/dL (0.2-1); TOT PROT 6.4 g/dl (6.4-8.2)
[2024-01-29] MEDS: MAGNESIUM HYDROX 2400MG/30ML ORAL SUSPENSION 30 ML CUP PO PRN (17:40)
[2024-01-29] MEDS: diazePAM 5 MG TABLET PO PRN (22:07)
[2024-01-30] MEDS: diazePAM 5 MG TABLET PO SCH (06:02)
[2024-01-30] MEDS: METHOCARBAMOL 500 MG TABLET PO PRN (22:46)
[2024-01-31] MEDS: diazePAM 5 MG TABLET PO SCH (05:47)
[2024-01-31 20:29] VITALS: RESP 18
[2024-01-31] MEDS: LACTULOSE 20 GM/30 ML UDC (FOR ORAL USE ONLY) PO SCH (21:54)
[2024-02-01] MEDS: diazePAM 5 MG TABLET PO ONE (05:59)
[2024-02-01 09:26] VITALS: BP 146/71; PULSE 85; TEMP 97.1
== END 2024-02-01 09:43 | disposition home or self-care (01) | DRG 774 ==
LOC: YASAS 11:33 → Y6N 14:08
PROVIDERS: ADMIT Allergy & Immunology; ATTEND Surgery
PROC: HZ2ZZZZ Detoxification Services for Substance Abuse Treatment (ICD-10-PCS; principal; 2024-01-28)
DX: F10.230 Alcohol dependence with withdrawal, uncomplicated (principal); F14.20 Cocaine dependence, uncomplicated; F16.10 Hallucinogen abuse, uncomplicated; F12.20 Cannabis dependence, uncomplicated; F17.210 Nicotine dependence, cigarettes, uncomplicated; E78.00 Pure hypercholesterolemia, unspecified; K21.9 Gastro-esophageal reflux disease without esophagitis; I10 Essential (primary) hypertension; Z86.19 Personal history of other infectious and parasitic diseases; Z86.11 Personal history of tuberculosis; Z99.89 Dependence on other enabling machines and devices; Z28.310 Unvaccinated for COVID-19; Z28.9 Immunization not carried out for unspecified reason
CPT/HCPCS: 36415; 71046-TC-FY; 80053; 80307; 82140; 85027; 86593; 86780; 93005; 93010